=== PATIENT | male | born 1980 | race African-American/Black ===

== ENCOUNTER 2023-02-13 10:59 | Emergency (ER) | payer OTHER ==
[~2023-02-13] VITALS: Ht 180.3 cm; Wt 118.0 kg
[2023-02-13 11:06] VITALS: O2SAT 94
[2023-02-13 12:44] LABS: BASOPHILS % 0.3 % (0.0-2.0); EOSINOPHILS % 0.9 % (0.0-5.0); HEMATOCRIT. 44.3 % (42.0-52.0); HEMOGLOBIN. 14.6 g/dL (14.0-18.0); LYMPHOCYTES % 14.8 % (20.0-50.0); MEAN CORPUSCULAR HEMOGLOBIN 28.8 pg (28.0-32.0); MEAN CORPUSCULAR VOLUME 87.4 fL (80.0-94.0); MEAN PLATELET VOLUME 11.9 fl (7.4-10.4); MONOCYTES % 6.1 % (2.0-8.0); NEUTROPHILS % 77.9 % (40.0-76.0); PLATELET 148 x1000/uL (130-400); RED BLOOD CELL COUNT 5.07 mill/uL (4.7-6.1); RED CELL DISTRIBUTION WIDTH 13.1 % (11.6-14.6); WHITE BLOOD COUNT 6.2 x1000/uL (4.5-11.0)
[2023-02-13 12:48] LABS: CHLORIDE 105 mEq/L (98-107); INDEX HEMOLYSI 1 (1-3); INDEX ICTERIC 1 (1-4); INDEX LIPEMIC 1 (1-3); POTASSIUM 3.8 mEq/L (3.5-5.1); SODIUM 138 mEq/L (136-145)
[2023-02-13 12:58] LABS: ALANINE AMINOTRANSFERASE 397 IU/L (13-61); ASPARTATE AMINOTRANSFERASE 306 IU/L (15-37); BILIRUBIN TOTAL 0.9 mg/dL (0.1-1.0); CALCIUM 8.8 mg/dL (8.5-10.1); CARBON DIOXIDE 30 mEq/L (21-32); GLUCOSE 135 mg/dL (70-105); NT PRO B-TYPE NATRIURETIC PEP 78 pg/mL (5-125); PROTEIN TOTAL 7.6 g/dL (6.0-8.3); TROPONIN I HIGH SENSITIVITY 14 ng/L (<78); UREA NITROGEN BLOOD 6 mg/dL (7-21)
[2023-02-13 14:20] VITALS: BP 147/92; PULSE 99; RESP 17; TEMP 98.3
== END 2023-02-13 16:00 ==
LOC: ER 10:59 → EDBEDREQ 13:30 → ER 16:00
DX: R55 Syncope and collapse (principal); R51.9 Headache, unspecified
CPT/HCPCS: 80053; 82962; 83880; 85025; 84484; 36415; 71045; 31500; 93005; 99285; Z7610 ×3